=== PATIENT | male | born 1930 | race Caucasian/White ===

== ENCOUNTER 2017-01-18 11:09 | Emergency (ER) | payer MEDICARE, OTHER ==
[~2017-01-18] VITALS: Ht 172.7 cm; Wt 64.0 kg
[~2017-01-18 11:09] MED LIST: ACETAMINOPHEN PO; ACTOS PO; ASPIRIN EC81 M1 PO; COUMADIN PO; COUMADIN7.5 MG PO; FEVERALL650 MG/SUP RC; GLUCOVANCE 5/501 TA1 PO; GLUCOVANCE 5/501 TA2 PO; HUMULIN 70100 UNIT/1 SUBQ; INVOKANA300 MG PO; LANSOPRAZOLE30 M2 PO; LEVAQUIN PO; LEVEMIR FL100 UNIT/1 SQ; LEVEMIR100 U/ML SQ; LIPITOR PO; LISINOPRIL PO; LISINOPRIL10 MG PO; NEXIUM PO; NORVASC PO; NORVASC2.5 MG PO; NOVOLOG FL100 UNIT/1 SUBQ; NOVOLOG100 U/M2 SUBQ; ONE DAILY1 TA3 PO; PROTONIX PO; TAMIFLU75 M1 DOB; TESSALON200 MG PO; VITAMIN B12-FO1 EACH PO; WELCHOL625 MG PO; ZETIA PO; [UNRECOGNIZED DRUG - REMARK]
[2017-01-18 13:08] LABS: BASOPHIL% 0.3 % (0-2.5); DIFF IND NO; EOSINOPHIL% 0.4 % (0.0-7.0); HEMATOCRIT 42.8 % (38.0-50.0); HEMOGLOBIN 14.4 gm/dL (13.0-16.0); LYMPHOCYTE# 1.5 X10e3 (1.0-3.5); MEAN CELL VOLUME 93.9 FL (83-96); MEAN CORPUSCULAR HEMOGLOBIN 31.6 PG (28-34); MEAN CORPUSCULAR HGB CONC 33.7 g/dL (30-36); MEAN PLATELET VOLUME 7.8 FL (6.5-11.5); MONOCYTE# 1.1 X10e3 (0-1.0); MONOCYTE% 8.9 % (3.0-12.0); NEUTROPHIL# 9.9 X10e3 (1.5-7.1); NEUTROPHIL% 78.4 % (40-75); PLATELET COUNT 159 X10e3 (140-420); RED BLOOD COUNT 4.56 X10e (3.90-5.60); RED CELL DISTRIBUTION WIDTH 13.1 % (11.0-15.5); WHITE BLOOD COUNT 12.6 X10e3 (4.0-10.5)
[2017-01-18 13:39] LABS: URINE SOURCE CLEAN CATCH
[2017-01-18 13:48] LABS: URINE APPEARANCE CLEAR; URINE BILIRUBIN NEG (NEG); URINE BLOOD NEG (NEG); URINE COLOR YELLOW; URINE GLUCOSE >1000 MG/DL (NEG); URINE KETONE TRACE (NEG); URINE LEUKOCYTE ESTERASE NEG (NEG); URINE NITRATE NEG (NEG); URINE PROTEIN 1+ (NEG); URINE SPECIFIC GRAVITY 1.034 (1.003-1.035); URINE UROBILINOGEN 0.2 MG/DL (NEG)
[2017-01-18 13:53] LABS: U HYALINE CASTS AUWI 0-2 /[LPF]; URBCS1 AUWI 0-2 /[HPF] (0-2); URINE BACTERIA AUWI NEG (NEGATIVE); URINE SQUAMOUS EPITHELIAL CELL OCC /[HPF]; UWBCS1 AUWI 0-2 (0-5)
[2017-01-18 13:54] LABS: ALBUMIN SERUM 3.7 g/dL (3.5-5.0); BETA HYDROXYBUTYRATE 0.16 MMOL/L (0.02-0.27); BILIRUBIN, DIRECT 0.1 mg/dL (0.0-0.2); BILIRUBIN,INDIRECT 0.7 mg/dL (0.0-0.9); BILIRUBIN,TOTAL 0.8 mg/dL (0.2-2.0); BUN/CREATININE RATIO 14.16; CALCIUM SERUM 9.1 mg/dL (8.4-10.2); CREATININE SERUM 1.2 mg/dL (0.6-1.4); GLOM FILT RATE Estimated 55.2 mL/min (>60); POTASSIUM 4.1 mmol/L (3.5-5.1); PROTEIN TOTAL SERUM 7.6 g/dL (6.0-8.3)
[2017-01-18 13:59] LABS: CULTURE INDICATED? NO
[2017-03-27] MEDS ORDERED: LANTUS100 U/ML SUBQ (09:09)
[2017-03-27] MEDS ORDERED: FENOFIBRATE48 MG PO (09:09)
[2017-03-27] MEDS ORDERED: NOVOLOG100 UNITS/ SUBQ (09:10)
[2017-03-27] MEDS ORDERED: COMBIVENT MININEB INH (09:11)
== END 2017-01-18 14:59 | disposition home or self-care (01) ==
LOC: CED 11:09
PROVIDERS: Emergency Medicine
DX: E11.65 Type 2 diabetes mellitus with hyperglycemia (principal); E78.5 Hyperlipidemia, unspecified; K21.9 Gastro-esophageal reflux disease without esophagitis; Z90.49 Acquired absence of other specified parts of digestive tract; Z88.0 Allergy status to penicillin; Z88.1 Allergy status to other antibiotic agents; Z88.2 Allergy status to sulfonamides
CPT/HCPCS: 36415; 80048; 80076; 81003; 82010; 82947; 85025; 96360; 96361; 99285